=== PATIENT | male | born 1950 | race African-American/Black ===

== ENCOUNTER 2023-03-25 02:03 | Emergency (ER) | payer OTHER ==
[~2023-03-25] VITALS: Ht 180.3 cm; Wt 113.0 kg
[2023-03-25 02:35] VITALS: BP 129/67
--- NOTE | 2023-03-25 02:40 | ED Cough/URI ---
General Chief Complaint: COVID19 Suspect/Confirmed Stated Complaint: COUGH Source: patient History of Present Illness Date Seen by Provider: Mar 25, 2023 Time Seen by Provider: 02:20 Initial Comments 72-year-old male presenting with complaints of 3 to 4 days of cough and green- colored sputum. He was concerned he may have pneumonia or COVID. He states he has had COVID at least twice in the past. He has a history of hypertension and heart failure. [facility] not [facility] to see the clinic for his symptoms. He became concerned because he was continuing to cough up green sputum overnight and it was making his chest hurt from him coughing so hard. He denies having any fever, chills, nausea, vomiting, known ill contacts. Timing/Duration: getting worse Severity/Quality: productive cough (Green-colored sputum) Modifying Factors: Worse With Coughing Associated Symptoms: chest pain/soreness, cough, nasal congestion, shortness of breath Allergies and Home Medications Allergies Coded Allergies: No Known Drug Allergies (Unverified , 03/25/23) Patient Home Medication List Home Medication List Reviewed: Yes Azithromycin (Azithromycin) 250 Mg Tablet, 250 MG PO DAILY Prescribed by: JONATHAN BERMAN on 03/25/23 033 Guaifenesin (Mucinex) 1,200 Mg Tab.er.12h, 1,200 MG PO BID Prescribed by: JONATHAN BERMAN on 03/25/23 033 Review of Systems Review of Systems Constitutional: No chills, No fever EENTM: see HPI Respiratory: see HPI Cardiovascular: see HPI Gastrointestinal: no symptoms reported Genitourinary: no symptoms reported Musculoskeletal: no symptoms reported Skin: no symptoms reported Psychiatric/Neurological: No Symptoms Reported Past Gvpogrn-Edlyvy-Hmfkby Hx Patient Social History Tobacco Use?: No Use of E-Cig and/or Vaping dev: No Past Medical History Surgery/Hospitalization HX: Hypertension, congestive heart failure Physical Exam Vital Signs - First Documented 03/25/23 02:35 Temp 36.9 Pulse 71 Resp 18 B/P (MAP) 129/67 (87) Capillary Refill : Height: '" Weight: lbs. oz. kg; BMI Method: General Appearance: WD/WN, no apparent distress HEENT: PERRL/EOMI, pharynx normal Neck: non-tender, full range of motion Respiratory: chest non-tender, lungs clear, normal breath sounds, no respiratory distress, no accessory muscle use Cardiovascular: normal peripheral pulses, regular rate, rhythm Gastrointestinal: normal bowel sounds, non tender, soft Extremities: normal range of motion, non-tender, no pedal edema, normal capillary refill Neurologic/Psychiatric: alert Skin: normal color, warm/dry Focused Exam Lactate Level 03/25/23 02:55: Lactic Acid Level 2.19*H Lactic Acid Level Laboratory Tests Test 03/25/23 02:55 Lactic Acid Level 2.19 MMOL/L (0.50-2.00) *H Progress/Results/Core Measures Suspected Sepsis SIRS Temperature: Pulse: Respiratory Rate: Laboratory Tests 03/25/23 02:55: White Blood Count 5.1 Blood Pressure / Mean: 03/25/23 02:55: Lactic Acid Level 2.19*H Laboratory Tests 03/25/23 02:55: Creatinine 1.30, Platelet Count 158, Total Bilirubin 0.4 Results/Orders Lab Results Laboratory Tests Test 03/25/23 02:35 03/25/23 02:55 Range/Units Influenza Type A (RT-PCR) Not Detected Not Detecte Influenza Type B (RT-PCR) Not Detected Not Detecte SARS-CoV-2 RNA (RT-PCR) Not Detected Not Detecte White Blood Count 5.1 4.3-11.0 10^3/uL Red Blood Count 5.55 H 4.30-5.52 10^6/uL Hemoglobin 13.2 L 13.3-17.7 g/dL Hematocrit 44 40-54 % Mean Corpuscular Volume 80 80-99 fL Mean Corpuscular Hemoglobin 24 L 25-34 pg Mean Corpuscular Hemoglobin Concent 30 L 32-36 g/dL Red Cell Distribution Width 13.6 10.0-14.5 % Platelet Count 158 130-400 10^3/uL Mean Platelet Volume 10.4 9.0-12.2 fL Immature Granulocyte % (Auto) 0 % Neutrophils (%) (Auto) 48 42-75 % Lymphocytes (%) (Auto) 36 12-44 % Monocytes (%) (Auto) 13 H 0-12 % Eosinophils (%) (Auto) 2 0-10 % Basophils (%) (Auto) 1 0-10 % Neutrophils # (Auto) 2.4 1.8-7.8 10^3/uL Lymphocytes # (Auto) 1.8 1.0-4.0 10^3/uL Monocytes # (Auto) 0.7 0.0-1.0 10^3/uL Eosinophils # (Auto) 0.1 0.0-0.3 10^3/uL Basophils # (Auto) 0.0 0.0-0.1 10^3/uL Immature Granulocyte # (Auto) 0.0 0.0-0.1 10^3/uL Sodium Level 141 135-145 MMOL/L Potassium Level 4.4 3.6-5.0 MMOL/L Chloride Level 105 98-107 MMOL/L Carbon Dioxide Level 26 21-32 MMOL/L Anion Gap 10 5-14 MMOL/L Blood Urea Nitrogen 16 7-18 MG/DL Creatinine 1.30 0.60-1.30 MG/DL Estimat Glomerular Filtration Rate 59 BUN/Creatinine Ratio 12 Glucose Level 234 H 70-105 MG/DL Lactic Acid Level 2.19 *H 0.50-2.00 MMOL/L Calcium Level 8.8 8.5-10.1 MG/DL Corrected Calcium 9.2 8.5-10.1 MG/DL Total Bilirubin 0.4 0.1-1.0 MG/DL Aspartate Amino Transf (AST/SGOT) 20 5-34 U/L Alanine Aminotransferase (ALT/SGPT) 13 0-55 U/L Alkaline Phosphatase 74 40-136 U/L C-Reactive Protein < 0.30 <0.50 MG/DL Total Protein 7.4 6.4-8.2 GM/DL Albumin 3.5 3.2-4.5 GM/DL My Orders Orders - JONATHAN BERMAN MD Covid 19 Inhouse Test (03/25/23 02:26) Influenza A And B By Pcr (03/25/23 02:) Cbc And Automated Diff (03/25/23 02:33) Comprehensive Metabolic Panel (03/25/23 02:33) Blood Culture (03/25/23 02:33) Chest 1 View Ap/Pa Only (03/25/23 02:33) Ed Iv/Invasive Line Start (03/25/23 02:33) Sputum Culture (03/25/23 02:33) Crp Fs (03/25/23 02:33) Lactic Acid Analyzer (03/25/23 02:33) Azithromycin Tablet (Azithromycin Tabl (03/25/23 03:28) Vital Signs/I&O 03/25/23 02:35 Temp 36.9 Pulse 71 Resp 18 B/P (MAP) 129/67 (87) Capillary Refill : Progress Note #1: Progress Note Differential diagnosis includes pneumonia, upper respiratory infection with virus, influenza, COVID, seasonal allergies. Establish peripheral IV access and send labs for complete blood count, compre hensive metabolic profile, blood cultures, lactic acid. 1 view chest x-ray to look for signs of acute infiltrate. Nasal swab to check for COVID and influenza. Progress Note #2: Time: 02:51 Progress Note On my personal interpretation and review of his 1 view chest x-ray I did not appreciate any acute infiltrate or effusion. Progress Note #3: Time: 03:30 Progress Note His labs showed a normal white blood cell count 5.1. He had negative COVID and influenza swab. His comprehensive metabolic profile showed an elevated glucose and his lactic acid was just above normal at 2.19. This may be related more to his hyperventilation as well as his diabetes but he does not have any indications of sepsis. Will treat with a course of Z-Jarrett and Mucinex since he was having colored sputum that he was coughing up. Encouraged to stay well- hydrated and check back with the [place] clinic for continued concerns. Diagnostic Imaging Diagonstic Imaging: Xray Plain Films/CT/US/NM/MRI: chest Reviewed: Reviewed by Me Departure Impression Primary Impression: Cough Qualified Codes: R05.1 - Acute cough Additional Impression: Upper respiratory infection Qualified Codes: J06.9 - Acute upper respiratory infection, unspecified Disposition: 01 HOME, SELF-CARE Condition: Stable Departure-Patient Inst. Decision time for Depature: 03:27 Referrals: NO,LOCAL PHYSICIAN (PCP/Family) Primary Care Physician Patient Instructions: Upper Respiratory Infection ED, Cough, Adult ED Add. Discharge Instructions: Try to stay well hydrated Take the full course of antibiotics for possible bacterial infection. This may just be more viral infection. Check with [place] clinic for continued concerns. All discharge instructions reviewed with patient and/or family. Voiced understanding. Scripts Guaifenesin (Mucinex) 1,200 Mg Tab.er.12h 1200 MG PO BID for cough/congestion for 7 Days, #14 TAB 0 Refills Prov: JONATHAN BERMAN MD 03/25/23 Azithromycin (Azithromycin) 250 Mg Tablet 250 MG PO DAILY for 4 Days, #4 TAB 0 Refills Prov: JONATHAN BERMAN MD 03/25/23 JONATHAN BERMAN MD Mar 25, 2023 02:40
[2023-03-25 03:05] LABS: BASOPHILS % (AUTO) 1 % (0-10); EOSINOPHILS # (AUTO) 0.1 10^3/uL (0.0-0.3); EOSINOPHILS % (AUTO) 2 % (0-10); HEMATOCRIT 44 % (40-54); HEMOGLOBIN 13.2 g/dL (13.3-17.7); LYMPHOCYTES # (AUTO) 1.8 10^3/uL (1.0-4.0); LYMPHOCYTES % (AUTO) 36 % (12-44); MEAN CORPUSCULAR HEMOGLOBIN 24 pg (25-34); MEAN CORPUSCULAR HGB CONC 30 g/dL (32-36); MEAN CORPUSCULAR VOLUME 80 fL (80-99); MEAN PLATELET VOLUME 10.4 fL (9.0-12.2); MONOCYTES # (AUTO) 0.7 10^3/uL (0.0-1.0); MONOCYTES % (AUTO) 13 % (0-12); NEUTROPHILS # (AUTO) 2.4 10^3/uL (1.8-7.8); NEUTROPHILS % (AUTO) 48 % (42-75); PLATELET COUNT 158 10^3/uL (130-400); WHITE BLOOD COUNT 5.1 10^3/uL (4.3-11.0)
[2023-03-25 03:28] LABS: CHLORIDE 105 MMOL/L (98-107); POTASSIUM 4.4 MMOL/L (3.6-5.0); SODIUM 141 MMOL/L (135-145)
[2023-03-25] MEDS ORDERED: AZITHROMYCIN 250 MG TABLET PO STA (03:28)
[2023-03-25 03:29] LABS: ALANINE AMINOTRANSFERASE 13 U/L (0-55); ALBUMIN 3.5 GM/DL (3.2-4.5); ALKALINE PHOSPHATASE 74 U/L (40-136); BILIRUBIN,TOTAL 0.4 MG/DL (0.1-1.0); BUN/CREATININE RATIO 12; CALCIUM 8.8 MG/DL (8.5-10.1); CARBON DIOXIDE 26 MMOL/L (21-32); GFR ESTIMATED 59; GLUCOSE 234 MG/DL (70-105); TOTAL PROTEIN 7.4 GM/DL (6.4-8.2)
[2023-03-25] MEDS ORDERED: AZIT250T12 PO (03:33)
[2023-03-25] MEDS ORDERED: GUAI120013 PO (03:33)
--- NOTE | 2023-03-25 07:07 | Diagnostic Imaging Report ---
EXAMINATION: Chest radiograph, portable AP view. DATE: 03/25/2023 2:46 AM INDICATION: 72-year-old male, cough and fever. COMPARISON: None. FINDINGS: Heart size and mediastinal contours are grossly unremarkable. There is no identified pneumothorax. There is no large pleural effusion. There is no identified focal airspace consolidation. IMPRESSION: 1. No identified acute cardiopulmonary abnormality. Dictated by: Dictated on workstation # [id number]
== END 2023-03-25 03:48 | disposition home or self-care (01) ==
LOC: ER FS 02:09
DX: J06.9 Acute upper respiratory infection, unspecified (principal); Z20.822 Contact with and (suspected) exposure to COVID-19; Z86.16 Personal history of COVID-19
CPT/HCPCS: 36415; 71045; 80053; 83605; 85025; 86141; 87040; 87636

== ENCOUNTER 2023-05-05 10:07 | Emergency (ER) | payer OTHER ==
[~2023-05-05] VITALS: Ht 180 cm; Wt 114.0 kg
[~2023-05-05 10:07] MED LIST: AZIT250T12 PO; GUAI120013 PO
[2023-05-05 10:24] LABS: BASOPHILS % (AUTO) 0 % (0-10); EOSINOPHILS # (AUTO) 0.1 10^3/uL (0.0-0.3); EOSINOPHILS % (AUTO) 1 % (0-10); HEMATOCRIT 42 % (40-54); HEMOGLOBIN 12.4 g/dL (13.3-17.7); LYMPHOCYTES # (AUTO) 1.4 10^3/uL (1.0-4.0); LYMPHOCYTES % (AUTO) 20 % (12-44); MEAN CORPUSCULAR HEMOGLOBIN 24 pg (25-34); MEAN CORPUSCULAR HGB CONC 30 g/dL (32-36); MEAN CORPUSCULAR VOLUME 81 fL (80-99); MEAN PLATELET VOLUME 10.5 fL (9.0-12.2); MONOCYTES # (AUTO) 0.8 10^3/uL (0.0-1.0); MONOCYTES % (AUTO) 12 % (0-12); NEUTROPHILS # (AUTO) 4.6 10^3/uL (1.8-7.8); NEUTROPHILS % (AUTO) 67 % (42-75); PLATELET COUNT 137 10^3/uL (130-400); WHITE BLOOD COUNT 6.9 10^3/uL (4.3-11.0)
--- NOTE | 2023-05-05 10:30 | ED General ---
General Chief Complaint: Respiratory Problems Stated Complaint: FALL | CP | SOB Nursing Triage Note: PT ARRIVES BY PRIVATE VEHICLE C/O SHORTNESS OF BREATH, CHEST PAIN, AND WEAKNESS THAT STARTED TODAY. PT REPORTS HE FELL YESTERDAY AND HIT THE BACK OF HIS HEAD. DENIES LOC. REPORTS HE IS ON XARELTO. Source of Information: Patient Exam Limitations: No Limitations History of Present Illness Date Seen by Provider: May 05, 2023 Time Seen by Provider: 10:16 Initial Comments 72-year-old male presents to the emergency department today for chest pain, shortness of breath and a fall yesterday, hitting his head. He has a history of atrial fibrillation and is on Xarelto. He states he was trying to sit down in a rocking chair yesterday and missed the chair causing him to fall and strike his head. He denies loss of consciousness. He has had some confusion since that time. He further endorses some chest pain off and on for the last 3 days. In discussing further he actually states that this has been going on for some time off and on but the last 3 days it has been worse. It is described as a sharp stabbing pain is bilateral anterior chest wall without radiation. No aggravating or alleviating factors. He has had a cough productive of green sputum per his report. He denies any fevers. No sick contacts. All other systems reviewed and negative except documented per HPI. Voice recognition software was used to help create this chart Allergies and Home Medications Allergies Coded Allergies: No Known Drug Allergies (Unverified , 03/25/23) Patient Home Medication List Home Medication List Reviewed: Yes Azithromycin (Azithromycin) 250 Mg Tablet, 250 MG PO DAILY Prescribed by: JONATHAN BERMAN on 03/25/23332 Guaifenesin (Mucinex) 1,200 Mg Tab.er.12h, 1,200 MG PO BID Prescribed by: JONATHAN CANADART on 03/25/23332 Review of Systems Review of Systems Constitutional: see HPI Past Myxjjbu-Nnupvw-Bflidd Hx Patient Social History Tobacco Use?: No Use of E-Cig and/or Vaping dev: No Substance use?: No Alcohol Use?: No Pt feels they are or have been: No Immunizations Up To Date Influenza Vaccine Up-to-Date: Yes; Up-to-Date Past Medical History Surgery/Hospitalization HX: Hypertension, congestive heart failure Physical Exam Vital Signs Vital Signs - First Documented 05/05/23 10:07 Temp 36.2 Pulse 120 Resp 18 B/P (MAP) 142/78 (99) Pulse Ox 97 O2 Delivery Room Air Capillary Refill : Less Than 3 Seconds Height, Weight, BMI Height: '" Weight: lbs. oz. kg; 35.00 BMI Method: General Appearance: No Apparent Distress, WD/WN HEENT: PERRL/EOMI, Normal ENT Inspection, Pharynx Normal Neck: Normal Inspection, Non Tender Respiratory: Chest Non Tender, Lungs Clear, No Accessory Muscle Use, No Respiratory Distress Cardiovascular: Normal Peripheral Pulses, Irregularly Irregular, Tachycardia Gastrointestinal: Normal Bowel Sounds, No Organomegaly, Non Tender, Soft Extremity: Normal Capillary Refill, Normal Inspection, Normal Range of Motion, Non Tender, No Calf Tenderness, No Pedal Edema Neurologic/Psychiatric: Alert, Oriented x3, No Motor/Sensory Deficits, Normal Mood/Affect, manager of corporate II-XII Norm as Tested Skin: Normal Color, Warm/Dry Progress/Results/Core Measures Suspected Sepsis SIRS Temperature: Pulse: 120 Respiratory Rate: 18 Laboratory Tests 05/05/23 10:15: White Blood Count 6.9 Blood Pressure 142 /78 Mean: 99 Laboratory Tests 05/05/23 10:15: Creatinine 1.37H, INR Comment 1.0, Platelet Count 137, Total Bilirubin 1.2H Results/Orders Lab Results Laboratory Tests Test 05/05/23 10:15 05/05/23 11:15 Range/Units White Blood Count 6.9 4.3-11.0 10^3/uL Red Blood Count 5.17 4.30-5.52 10^6/uL Hemoglobin 12.4 L 13.3-17.7 g/dL Hematocrit 42 40-54 % Mean Corpuscular Volume 81 80-99 fL Mean Corpuscular Hemoglobin 24 L 25-34 pg Mean Corpuscular Hemoglobin Concent 30 L 32-36 g/dL Red Cell Distribution Width 14.1 10.0-14.5 % Platelet Count 137 130-400 10^3/uL Mean Platelet Volume 10.5 9.0-12.2 fL Immature Granulocyte % (Auto) 1 % Neutrophils (%) (Auto) 67 42-75 % Lymphocytes (%) (Auto) 20 12-44 % Monocytes (%) (Auto) 12 0-12 % Eosinophils (%) (Auto) 1 0-10 % Basophils (%) (Auto) 0 0-10 % Neutrophils # (Auto) 4.6 1.8-7.8 10^3/uL Lymphocytes # (Auto) 1.4 1.0-4.0 10^3/uL Monocytes # (Auto) 0.8 0.0-1.0 10^3/uL Eosinophils # (Auto) 0.1 0.0-0.3 10^3/uL Basophils # (Auto) 0.0 0.0-0.1 10^3/uL Immature Granulocyte # (Auto) 0.0 0.0-0.1 10^3/uL Prothrombin Time 13.4 12.2-14.7 SEC INR Comment 1.0 0.8-1.4 Sodium Level 138 135-145 MMOL/L Potassium Level 5.1 H 3.6-5.0 MMOL/L Chloride Level 104 98-107 MMOL/L Carbon Dioxide Level 26 21-32 MMOL/L Anion Gap 8 5-14 MMOL/L Blood Urea Nitrogen 17 7-18 MG/DL Creatinine 1.37 H 0.60-1.30 MG/DL Estimat Glomerular Filtration Rate 55 BUN/Creatinine Ratio 12 Glucose Level 221 H 70-105 MG/DL Calcium Level 8.8 8.5-10.1 MG/DL Corrected Calcium 9.1 8.5-10.1 MG/DL Total Bilirubin 1.2 H 0.1-1.0 MG/DL Aspartate Amino Transf (AST/SGOT) 20 5-34 U/L Alanine Aminotransferase (ALT/SGPT) 17 0-55 U/L Alkaline Phosphatase 77 40-136 U/L Troponin I < 0.30 <0.30 NG/ML Total Protein 7.7 6.4-8.2 GM/DL Albumin 3.6 3.2-4.5 GM/DL Urine Color YELLOW Urine Clarity CLEAR Urine pH 6.0 5-9 Urine Specific Jber 1.010 L 1.016-1.022 Urine Protein NEGATIVE NEGATIVE Urine Glucose (UA) 3+ H NEGATIVE Urine Ketones NEGATIVE NEGATIVE Urine Nitrite NEGATIVE NEGATIVE Urine Bilirubin NEGATIVE NEGATIVE Urine Urobilinogen 1.0 < = 1.0 MG/DL Urine Leukocyte Esterase NEGATIVE NEGATIVE Urine RBC (Auto) NEGATIVE NEGATIVE Urine RBC 0-2 /HPF Urine WBC NONE /HPF Urine Crystals NONE /LPF Urine Bacteria NEGATIVE /HPF Urine Casts NONE /LPF Urine Mucus NEGATIVE /LPF Urine Culture Indicated NO My Orders Orders - DYLLAN NERI DO Cbc And Automated Diff (05/05/23 10:20) Comprehensive Metabolic Panel (05/05/23 10:20) Ua Culture If Indicated (05/05/23 10:20) Ekg Tracing (05/05/23 10:20) Ct Head Wo (05/05/23 10:20) Troponin I Fs (05/05/23 10:20) Protime With Inr (05/05/23 10:26) Chest 1 View Ap/Pa Only (05/05/23 10:55) Vital Signs/I&O 05/05/23 10:07 Temp 36.2 Pulse 120 Resp 18 B/P (MAP) 142/78 (99) Pulse Ox 97 O2 Delivery Room Air Capillary Refill : Less Than 3 Seconds Blood Pressure Mean: 99 ECG Comment Atrial fibrillation with rate of 95 bpm. Normal intervals. Left axis deviation. No ST or T wave abnormalities. No ectopy. No STEMI. Departure Communication (Admissions) Patient is hemodynamically stable outside of some intermittent tachycardia with A-fib. Max heart rate of seen was 123. His blood pressures have been stable. On further discussion he has not taken his medications this morning which do include Cardizem and beta-luke. He took them while he was here. His chest x-ray is negative for any acute cardiopulmonary abnormalities. Your CT scan of his head is negative for any acute intracranial abnormalities. Labs are reassuring. There is no indication for admission to the hospital at this time. With that he is discharged in stable condition. His troponins are negative and his EKG is nonischemic. In discussion he has been having these chest pains off and on for several months. I advised he follow-up with his primary doctor for discussion of possible stress testing or other necessary testing. He states understanding. He is discharged in stable condition with supportive care. Impression Primary Impression: Atrial fibrillation Qualified Codes: I48.0 - Paroxysmal atrial fibrillation Additional Impression: Chest pain Qualified Codes: R07.9 - Chest pain, unspecified Disposition: HOME, SELF-CARE Condition: Stable Departure-Patient Inst. Referrals: NO,LOCAL PHYSICIAN (PCP/Family) Primary Care Physician Patient Instructions: Chest Pain, Adult ED Add. Discharge Instructions: No emergent medical conditions identified for your symptoms today. Given the intermittent nature of your chest pain I recommend you follow-up with your primary doctor for further discussion and possible further testing if they deem it necessary. Your chest x-ray shows no evidence for pneumonia. CT scan of your head is negative for any bleeding or other serious problem. Your labs and vital signs are reassuring. Please continue to take your medications as previously prescribed. Return to the emergency department for any severe concerns. All discharge instructions reviewed with patient and/or family. Voiced understanding. DYLLAN NERI DO May 05, 2023 10:30
[2023-05-05 10:35] LABS: PROTHROMBIN TIME PATIENT 13.4 SEC (12.2-14.7)
[2023-05-05 10:49] LABS: ALANINE AMINOTRANSFERASE 17 U/L (0-55); ALBUMIN 3.6 GM/DL (3.2-4.5); ALKALINE PHOSPHATASE 77 U/L (40-136); BILIRUBIN,TOTAL 1.2 MG/DL (0.1-1.0); BUN/CREATININE RATIO 12; CALCIUM 8.8 MG/DL (8.5-10.1); CARBON DIOXIDE 26 MMOL/L (21-32); CHLORIDE 104 MMOL/L (98-107); CREATININE SERUM 1.37 MG/DL (0.60-1.30); GFR ESTIMATED 55; GLUCOSE 221 MG/DL (70-105); SODIUM 138 MMOL/L (135-145); TOTAL PROTEIN 7.7 GM/DL (6.4-8.2)
--- NOTE | 2023-05-05 10:55 | Diagnostic Imaging Report ---
PROCEDURE: CT head without contrast. TECHNIQUE: Multiple contiguous axial images were obtained through the brain without the use of intravenous contrast. Auto Exposure Controls were utilized during the CT exam to meet ALARA standards for radiation dose reduction. INDICATION: Altered mental status. Trauma. Fall. COMPARISON: None. FINDINGS: Mild to moderate generalized volume loss. No intracranial hemorrhage, mass effect, hydrocephalus, or extra-axial fluid collections. No CT evidence of a territorial infarction. Small scalp contusion overlying the midline parietal convexity. No acute osseous findings. Paranasal sinuses and mastoids are clear where seen. IMPRESSION: Small scalp contusion overlying the midline parietal convexity. No underlying fractures. No acute intracranial CT findings. Dictated by: Dictated on workstation # [id number]
[2023-05-05 11:18] LABS: POTASSIUM 5.1 MMOL/L (3.6-5.0)
[2023-05-05 11:22] LABS: BILIRUBIN,URINE NEGATIVE (NEGATIVE); CLARITY,URINE CLEAR; COLOR,URINE YELLOW; GLUCOSE, URINE (UA) 3+ (NEGATIVE); KETONES,URINE NEGATIVE (NEGATIVE); LEUKOCYTE ESTERASE ,URINE NEGATIVE (NEGATIVE); NITRITE,URINE NEGATIVE (NEGATIVE); PROTEIN,URINE NEGATIVE (NEGATIVE)
--- NOTE | 2023-05-05 11:22 | Diagnostic Imaging Report ---
EXAMINATION: Chest 1 view HISTORY: dyspnea COMPARISON: 03/25/2023 FINDINGS: The lungs are clear without edema or pneumonia. No pleural effusion or pneumothorax. Heart size is normal. IMPRESSION: 1. Clear lungs. Dictated by: Dictated on workstation # [id number]
[2023-05-05 11:26] LABS: BACTERIA,URINE NEGATIVE /HPF; RBC,URINE 0-2 /HPF
[2023-05-05 11:33] VITALS: BP 123/92
[2023-05-06] MEDS ORDERED: FURO-125 PO (10:55)
== END 2023-05-05 11:39 | disposition home or self-care (01) ==
LOC: EDUNIT# 10:07 → ER FS 10:08
DX: I48.91 Unspecified atrial fibrillation (principal); Z79.01 Long term (current) use of anticoagulants
CPT/HCPCS: 36415; 70450; 71045; 80053; 81000; 84484; 85025; 85610; 93005; 93041

== ENCOUNTER → 2023-05-06 | Emergency (ER) | payer OTHER ==
[~2023-05-06] VITALS: Ht 176 cm; Wt 120.0 kg
[~2023-05-06] MED LIST changes: +FURO-125 PO; +FUROSEMIDE INJECTION 40 MG/4 ML VIAL IVP STA; +dilTIAZem INJ 25 MG/5 ML VIAL IVP STA
--- NOTE | 2023-05-06 10:01 | ED General ---
General Stated Complaint: FALL; A-FIB Source of Information: Patient, Old Records History of Present Illness Date Seen by Provider: May 06, 2023 Time Seen by Provider: 09:43 Initial Comments 72-year-old male presenting with complaints of continued shortness of breath and headache with nausea and vomiting since being seen yesterday. He was seen in the emergency department yesterday and advised that he had atrial fibrillation. He does take Xarelto and had fallen and hit his head however CT scan of the head yesterday did not show any evidence of intracranial hemorrhage or bleeding. He reports that he is to [facility] [place] because [facility] however his appointment is not until next Saturday. He reports he was feeling short of breath with exertion as well as at rest. He denies having any chest pain. He denies missing any doses of medications. He [facility] and [facility]. Timing/Duration: 2-3 Days Severity: Moderate Modifying Factors: worse with Movement (More short of breath with movement) Associated Systoms: No Chest Pain, No Cough, No Diaphoresis, No Fever/Chills; Headaches; No Loss of Appetite, No Malaise; Nausea/Vomiting; No Rash, No Seizure; Shortness of Air; No Syncope; Weakness Allergies and Home Medications Allergies Coded Allergies: No Known Drug Allergies (Unverified , 03/25/23) Patient Home Medication List Home Medication List Reviewed: Yes Furosemide (Lasix) 20 Mg Tablet, 20 MG PO DAILY Prescribed by: JONATHAN BERMAN on 05/06/23 1055 Discontinued Medications Azithromycin (Azithromycin) 250 Mg Tablet, 250 MG PO DAILY Prescribed by: JONATHAN BERMAN on 03/25/23 0333 Guaifenesin (Mucinex) 1,200 Mg Tab.er.12h, 1,200 MG PO BID Prescribed by: JONATHAN BERMAN on 03/25/23 0333 Review of Systems Review of Systems Constitutional: No chills, No dizziness, No fever EENTM: no symptoms reported Respiratory: see HPI Cardiovascular: No chest pain; palpitations Gastrointestinal: No abdominal pain; nausea, vomiting Genitourinary: No dysuria Musculoskeletal: no symptoms reported Skin: no symptoms reported Psychiatric/Neurological: Headache Past Vhnpena-Quhish-Jwpykb Hx Past Medical History Surgery/Hospitalization HX: Hypertension, congestive heart failure, chronic paroxysmal atrial fibrillation Physical Exam Vital Signs Vital Signs - First Documented 05/06/23 10:02 Temp 36.6 Pulse 98 Resp 20 B/P (MAP) 140/99 (113) Pulse Ox 99 O2 Delivery Room Air Capillary Refill : Height, Weight, BMI Height: '" Weight: lbs. oz. kg; 35.00 BMI Method: General Appearance: No Apparent Distress, Obese Respiratory: Chest Non Tender, No Accessory Muscle Use, No Respiratory Distress, Decreased Breath Sounds Cardiovascular: Normal Peripheral Pulses, Irregularly Irregular, Tachycardia Gastrointestinal: Normal Bowel Sounds, No Pulsatile Mass, Non Tender, Soft Extremity: Normal Capillary Refill, Pedal Edema (1+ BLE ) Neurologic/Psychiatric: Alert, Oriented x3, image scientist II-XII Norm as Tested Skin: Normal Color, Warm/Dry Progress/Results/Core Measures Suspected Sepsis SIRS Temperature: Pulse: Respiratory Rate: Laboratory Tests 05/06/23 09:53: White Blood Count 7.1 Blood Pressure / Mean: Laboratory Tests 05/06/23 09:53: Creatinine 1.21, INR Comment 1.1, Platelet Count 143, Total Bilirubin 1.5H Results/Orders Lab Results Laboratory Tests Test 05/06/23 09:53 Range/Units White Blood Count 7.1 4.3-11.0 10^3/uL Red Blood Count 5.01 4.30-5.52 10^6/uL Hemoglobin 12.1 L 13.3-17.7 g/dL Hematocrit 40 40-54 % Mean Corpuscular Volume 79 L 80-99 fL Mean Corpuscular Hemoglobin 24 L 25-34 pg Mean Corpuscular Hemoglobin Concent 31 L 32-36 g/dL Red Cell Distribution Width 13.9 10.0-14.5 % Platelet Count 143 130-400 10^3/uL Mean Platelet Volume 11.9 9.0-12.2 fL Immature Granulocyte % (Auto) 1 % Neutrophils (%) (Auto) 71 42-75 % Lymphocytes (%) (Auto) 18 12-44 % Monocytes (%) (Auto) 9 0-12 % Eosinophils (%) (Auto) 1 0-10 % Basophils (%) (Auto) 1 0-10 % Neutrophils # (Auto) 5.1 1.8-7.8 10^3/uL Lymphocytes # (Auto) 1.3 1.0-4.0 10^3/uL Monocytes # (Auto) 0.7 0.0-1.0 10^3/uL Eosinophils # (Auto) 0.0 0.0-0.3 10^3/uL Basophils # (Auto) 0.0 0.0-0.1 10^3/uL Immature Granulocyte # (Auto) 0.0 0.0-0.1 10^3/uL Percent Immature Platelet Fraction 5.0 0.0-7.6 % Prothrombin Time 14.7 12.2-14.7 SEC INR Comment 1.1 0.8-1.4 Activated Partial Thromboplast Time 29 24-35 SEC Sodium Level 137 135-145 MMOL/L Potassium Level 5.1 H 3.6-5.0 MMOL/L Chloride Level 105 98-107 MMOL/L Carbon Dioxide Level 23 21-32 MMOL/L Anion Gap 9 5-14 MMOL/L Blood Urea Nitrogen 14 7-18 MG/DL Creatinine 1.21 0.60-1.30 MG/DL Estimat Glomerular Filtration Rate 64 BUN/Creatinine Ratio 12 Glucose Level 190 H 70-105 MG/DL Calcium Level 8.4 L 8.5-10.1 MG/DL Corrected Calcium 9.0 8.5-10.1 MG/DL Magnesium Level 2.2 1.6-2.4 MG/DL Total Bilirubin 1.5 H 0.1-1.0 MG/DL Aspartate Amino Transf (AST/SGOT) 25 5-34 U/L Alanine Aminotransferase (ALT/SGPT) 16 0-55 U/L Alkaline Phosphatase 71 40-136 U/L Troponin I < 0.30 <0.30 NG/ML Pro-B-Type Natriuretic Peptide 5694.0 H <125.0 PG/ML Total Protein 7.2 6.4-8.2 GM/DL Albumin 3.2 3.2-4.5 GM/DL Lipase 32 8-78 U/L Serum Alcohol < 10 <10 MG/DL My Orders Orders - JONATHAN BERMAN MD Cbc And Automated Diff (05/06/23 09:52) Magnesium (05/06/23 09:52) Chest 1 View Ap/Pa Only (05/06/23 09:52) Ekg Tracing (05/06/23:52) Comprehensive Metabolic Panel (05/06/23:52) Protime With Inr (11/13/23 09:52) Partial Thromboplastin Time (05/06/23 09:52) O2 (05/06/23 09:52) Monitor-Rhythm Ecg Trace Only (05/06/23 09:52) Ed Iv/Invasive Line Start (05/06/23 09:52) Lipase (05/06/23 09:52) Troponin I Fs (05/06/23 09:52) Probnp Fs (05/06/23 09:52) Ct Head Wo (05/06/23 09:52) Diltiazem Injection (Diltiazem Injection (05/06/23 10:05) Ua Culture If Indicated (05/06/23 10:15) Drug Screen Stat (Urine) (05/06/23 10:15) Alcohol (05/06/23 10:23) Furosemide Injection (Furosemide Injec (05/06/23 10:56) Vital Signs/I&O 05/06/23 05/06/23 05/06/23 10:02 10:07 10:20 Temp 36.6 Pulse 98 110 Resp 20 B/P (MAP) 140/99 (113) 105/63 Pulse Ox 99 99 O2 Delivery Room Air Room Air Capillary Refill : Progress Note #1: Progress Note Differential diagnosis includes congestive heart failure, pneumonia, electrolyte imbalance, intracranial hemorrhage, myocardial infarction, atrial fibrillation. Patient had labs and radiology testing done yesterday that did not demonstrate any acute intracranial hemorrhage or acute ischemic changes with his heart. Will repeat testing to see if there has been any change since yesterday. Also order proBNP to look for signs of heart failure. Patient's oxygen saturation is 94 to 97% on room air. His initial heart rate on cardiac commutator undercutter shows atrial fibrillation with RVR and heart rate up to 140 at times. Obtain electrocardiogram to look for signs of ischemia. 1 view chest x-ray to look for pathology to cause his shortness of breath. CT scan of the head without contrast to look again for any change to indicate signs of bleeding since he takes Xarelto and complained that he continued to have a headache and some nausea and vomiting. He was asking for something to eat when he got to the emergency department. Establish peripheral IV access and send labs for complete blood count, comprehensive metabolic profile, pro time, PTT, proBNP, troponin, lipase. Order diltiazem 10 mg IV x1 to try and help with his atrial fibrillation with RVR. Progress Note #2: Progress Note Add on urinalysis and urine drug screen as well as alcohol level to look for other reasons that could be causing him to be short of breath and in atrial fibrillation. His initial electrocardiogram showed atrial fibrillation with intraventricular conduction delay and left bundle branch block. He had no acute ST elevation. Appeared similar to tracing from yesterday on May 05, 2023. 1 view chest x-ray showed signs of cardiomegaly and mild pulmonary vascular congestion. Complete blood count had a normal white blood cell count of 7.1. Hemoglobin low normal at 12.1. Comprehensive metabolic profile showed mild elevation of the potassium to 5.1. His BUN was 14 with a creatinine of 1.21. Glucose elevated to 190. His troponin was less than 0.3. proBNP was 5694, with no prior test for comparison. Lipase was normal at 32. His coagulation factors were not elevated with pro time of 14.7 and INR of 1.1. His PTT was normal at 29. Alcohol level was less than 10. After the single dose of diltiazem 10 mg IV has blood pressure is 109/72 and heart rate is still showing atrial fibrillation but is now in the 70s. With him having an elevated proBNP level as well as some mild cardiomegaly showing on the chest x-ray could order additional Lasix to help with his shortness of breath. His CT head continues to show no acute intracranial hemorrhage. We will reassure the patient and advised him to [facility]up with [facility] but at this point there is no indication that he required inpatient treatment or transfer to a [facility] hospital. Advised if he had more concerns he [facility] and have them evaluate him there. ECG Initial ECG Impression Date: May 06, 2023 Initial ECG Impression Time: 09:58 Initial ECG Rate: 97 Initial ECG Rhythm: A Fib/Flutter Initial ECG Comparisson: Unchanged (05/05/2023) Comment Following initial interpretation and review the electrocardiogram shows atrial fibrillation with a heart rate of 97 bpm. He has a intraventricular conduction delay left bundle branch block. There is no acute ST elevation. QT interval 420 ms with a QTc interval 475 ms. Overall appears similar to tracing from yesterday May 05, 2023. Diagnostic Imaging Diagonstic Imaging: CT Plain Films/CT/US/NM/MRI: head Comments NAME: [facility] REC#: [id number] PT STATUS: REG ER : 1950 PHYSICIAN: JONATHAN BERMAN MD ADMIT DATE: 05/06/23/ER FS Draft Date of Exam:05/06/23 CT HEAD WO PROCEDURE: CT head without contrast. TECHNIQUE: Multiple contiguous axial images were obtained through the brain without the use of intravenous contrast. Auto Exposure Controls were utilized during the CT exam to meet ALARA standards for radiation dose reduction. INDICATION: Headache. Nausea and vomiting. Trauma. Anticoagulation therapy. COMPARISON: 05/05/2023. FINDINGS: Moderate generalized volume loss. No intracranial hemorrhage, mass effect, hydrocephalus, or extra-axial fluid collections. No CT evidence of territorial infarction. Small scalp contusion at the vertex. Osseous structures are intact. Visualized paranasal sinuses and mastoids are clear. IMPRESSION: 1. Small scalp contusion near the vertex. No fractures. 2. No acute intracranial CT findings. Dictated on workstation # [id number] Dict: 05/06/23 1021 Trans: 05/06/23 1028 [id number] Interpreted by: MUKESH MURRAY MD Electronically signed by: Reviewed: Reviewed by [place] Diagonstic Imaging: Xray Plain Films/CT/US/NM/MRI: chest Comments NAME: [facility] REC#: [id number] PT STATUS: REG ER : 1950 PHYSICIAN: JONATHAN BERMAN MD ADMIT DATE: 05/06/23/ER FS Draft Date of Exam:05/06/23 CHEST 1 VIEW AP/PA ONLY INDICATION: Short of breath. COMPARISON: 05/05/2023. FINDINGS: Single frontal view of the chest demonstrates mild cardiomegaly and pulmonary vascular congestion. The lungs are well aerated and clear. No large pleural effusion or pneumothorax is seen. The visualized osseous structures show no acute abnormalities. IMPRESSION: 1. Mild cardiomegaly and pulmonary vascular congestion. Dictated on workstation # [id number] Dict: 05/06/23 1031 Trans: 05/06/23 1039 [id number] Interpreted by: SOPHIE RAMIREZ MD Electronically signed by: Reviewed: Reviewed by Me Departure Impression Primary Impression: Shortness of breath on exertion Additional Impressions: Chronic atrial fibrillation with rapid ventricular response Congestive heart failure Qualified Codes: I50.9 - Heart failure, unspecified Disposition: 01 HOME, SELF-CARE Condition: Stable Departure-Patient Inst. Decision time for Depature: 10:56 Referrals: NO,LOCAL PHYSICIAN (PCP/Family) Primary Care Physician Patient Instructions: Atrial Fibrillation and Atrial Flutter ED, Heart Failure ED, Shortness of Breath, Adult ED Add. Discharge Instructions: Continue taking [facility]. For the next 3 days take additional 20 mg of Furosemide or Lasix daily to help with heart failure and your shortness of breath. Check back with your regular providers at the [facility] for continued concerns. You could go see the [facility] sooner than next week if having continued concerns. Scripts Furosemide (Lasix) 20 Mg Tablet 20 MG PO DAILY for CHF for 3 Days, #3 TAB 0 Refills Prov: JONATHAN BERMAN MD 05/06/23 JONATHAN BERMAN MD May 06, 2023 10:01
[2023-05-06 10:05] LABS: BASOPHILS % (AUTO) 1 % (0-10); EOSINOPHILS % (AUTO) 1 % (0-10); HEMATOCRIT 40 % (40-54); HEMOGLOBIN 12.1 g/dL (13.3-17.7); LYMPHOCYTES # (AUTO) 1.3 10^3/uL (1.0-4.0); LYMPHOCYTES % (AUTO) 18 % (12-44); MEAN CORPUSCULAR HEMOGLOBIN 24 pg (25-34); MEAN CORPUSCULAR HGB CONC 31 g/dL (32-36); MEAN CORPUSCULAR VOLUME 79 fL (80-99); MEAN PLATELET VOLUME 11.9 fL (9.0-12.2); MONOCYTES # (AUTO) 0.7 10^3/uL (0.0-1.0); MONOCYTES % (AUTO) 9 % (0-12); NEUTROPHILS # (AUTO) 5.1 10^3/uL (1.8-7.8); NEUTROPHILS % (AUTO) 71 % (42-75); PLATELET COUNT 143 10^3/uL (130-400); WHITE BLOOD COUNT 7.1 10^3/uL (4.3-11.0)
[2023-05-06 10:19] LABS: INR 1.1 (0.8-1.4); PROTHROMBIN TIME PATIENT 14.7 SEC (12.2-14.7)
[2023-05-06 10:20] VITALS: BP 105/63
[2023-05-06 10:21] LABS: CHLORIDE 105 MMOL/L (98-107); POTASSIUM 5.1 MMOL/L (3.6-5.0); SODIUM 137 MMOL/L (135-145)
[2023-05-06 10:22] LABS: ALANINE AMINOTRANSFERASE 16 U/L (0-55); ALBUMIN 3.2 GM/DL (3.2-4.5); ALKALINE PHOSPHATASE 71 U/L (40-136); BILIRUBIN,TOTAL 1.5 MG/DL (0.1-1.0); BUN/CREATININE RATIO 12; CALCIUM 8.4 MG/DL (8.5-10.1); CARBON DIOXIDE 23 MMOL/L (21-32); CREATININE SERUM 1.21 MG/DL (0.60-1.30); GFR ESTIMATED 64; GLUCOSE 190 MG/DL (70-105); LIPASE 32 U/L (8-78); MAGNESIUM 2.2 MG/DL (1.6-2.4); TOTAL PROTEIN 7.2 GM/DL (6.4-8.2)
--- NOTE | 2023-05-06 10:30 | Diagnostic Imaging Report ---
PROCEDURE: CT head without contrast. TECHNIQUE: Multiple contiguous axial images were obtained through the brain without the use of intravenous contrast. Auto Exposure Controls were utilized during the CT exam to meet ALARA standards for radiation dose reduction. INDICATION: Headache. Nausea and vomiting. Trauma. Anticoagulation therapy. COMPARISON: 05/05/2023. FINDINGS: Moderate generalized volume loss. No intracranial hemorrhage, mass effect, hydrocephalus, or extra-axial fluid collections. No CT evidence of territorial infarction. Small scalp contusion at the vertex. Osseous structures are intact. Visualized paranasal sinuses and mastoids are clear. IMPRESSION: 1. Small scalp contusion near the vertex. No fractures. 2. No acute intracranial CT findings. Dictated by: Dictated on workstation # [id number]
--- NOTE | 2023-05-06 10:40 | Diagnostic Imaging Report ---
INDICATION: Short of breath. COMPARISON: 05/05/2023. FINDINGS: Single frontal view of the chest demonstrates mild cardiomegaly and pulmonary vascular congestion. The lungs are well aerated and clear. No large pleural effusion or pneumothorax is seen. The visualized osseous structures show no acute abnormalities. IMPRESSION: 1. Mild cardiomegaly and pulmonary vascular congestion. Dictated by: Dictated on workstation # [id number]
== END ==
LOC: EDUNIT# 09:38 → ER FS 09:41
DX: I48.20 Chronic atrial fibrillation, unspecified (principal); I11.0 Hypertensive heart disease with heart failure; I50.9 Heart failure, unspecified; E66.9 Obesity, unspecified; Z68.35 Body mass index [BMI] 35.0-35.9, adult
CPT/HCPCS: 36415; 70450; 71045; 80053; 80320; 83690; 83735; 83880; 84484; 85025; 85610; 85730; 93005; 93041; 96374; 96375